=== PATIENT | female | born 1985 | race African-American/Black ===

== ENCOUNTER 2017-08-22 21:11 | Emergency (ER) | payer MEDICAID ==
[~2017-08-22] VITALS: Ht 165.1 cm; Wt 73.9 kg
[~2017-08-22 21:11] MED LIST: ALBUTEROL SULF8.5 GM INH; BENADRYL25 MG PO; CIPRO500 MG PO; ELIMITE 5% CREA60 GM TOPIC; KEPPRA500 MG PO; ZOFRAN ODT4 MG ORAL
[2017-08-22 21:30] VITALS: BP 126/76
[2017-08-22] MEDS ORDERED: Norco 5mg/325mg tab ORAL ONE (21:30)
[2017-08-22 21:47] LABS: APPEARANCE,URINE SLIGHTLY CLOUDY; BILIRUBIN, URINE NEGATIVE (NEGATIVE); GLUCOSE, URINE (UA) NEGATIVE (NEGATIVE); KETONES,URINE 1+ (NEGATIVE); LEUKOCYTE ESTERASE ,URINE 3+ (NEGATIVE); NITRITE,URINE NEGATIVE (NEGATIVE); PH,URINE 7 (4.5-8.0); PROTEIN,URINE NEGATIVE (NEGATIVE); UROBILINOGEN,URINE 4 MG/DL (0.0-1.0)
[2017-08-22 21:48] LABS: COLOR,URINE YELLOW
[2017-08-22] MEDS ORDERED: Cephalexin 500mg cap ORAL ONE (22:30)
[2017-08-22] MEDS ORDERED: MACROBID100 MG ORAL (23:07)
[2017-08-22] MEDS ORDERED: HYDROCODON-ACE1 EA15 ORAL (23:07)
--- NOTE | 2017-08-22 23:08 | Emergency Room Report ---
History of Present Illness General Chief Complaint: Abdominal Pain Source: Patient, EMS Present Illness HPI Is a 32-year-old female who is 4 approximately 6-7 weeks . She presents with acute onset of pain and vaginal spotting. Same symptom occurred 2 weeks ago when she went to another hospital and had ultrasound does show she was 5 weeks . No fever or chills. No nausea no vomiting. No dysuria frequency. Pain started on the middle and radiate to her back and down her leg. Pain is 10 out of 10. No trauma. Allergies: Coded Allergies: No Known Allergies (Verified , 10/08/08) Patient History Past Medical History: see triage record, old chart reviewed Past Surgical History: none Pertinent Family History: none Social History: Denies: smoking Last Menstrual Period: 6 weeks Now: Yes : 4 Para: 1 Immunizations: other Reviewed Nursing Documentation: PMH: Agreed, PSxH: Agreed Nursing Documentation-PMH Hx Cardiac Problems: Yes - anemia Hx Asthma: Yes Hx Cancer: No Hx Gastrointestinal Problems: Yes Hx Neurological Problems: Yes Hx Seizures: Yes Hx Epilepsy: Yes Hx Tremors: Yes Hx Vertigo: Yes Hx Dizziness: Yes Hx Syncope: Yes Hx Headaches: Yes Hx Weakness: Yes Hx Fatigue: Yes Review of Systems Eye: Denies: eye pain, blurred vision ENT: Denies: ear pain, nose congestion, throat swelling Respiratory: Denies: cough, shortness of breath Cardiovascular: Denies: chest pain, palpitations Gastrointestinal: Reports: abdominal pain, Denies: diarrhea, nausea, vomiting Musculoskeletal: Denies: back pain, joint pain Skin: Denies: rash Neurological: Denies: headache, numbness Endocrine: Denies: increased thirst, increased urine Hematologic/Lymphatic: Denies: easy bruising All Other Systems: negative except mentioned in HPI Physical Exam Vital Signs Date Time Temp Pulse Resp B/P (MAP) Pulse Ox O2 Delivery O2 Flow Rate FiO2 08/22/17 21:07 98.2 64 18 122/79 99 Room Air 98.2 vitals normal Sp02 EP Interpretation: reviewed, normal General Appearance: well appearing, no apparent distress, alert Head: normocephalic, atraumatic Eyes: bilateral eye PERRL, bilateral eye EOMI ENT: hearing grossly normal, normal pharynx Neck: full range of motion, supple, no meningismus Respiratory: chest non-tender, lungs clear, normal breath sounds Cardiovascular #1: regular rate, rhythm, no murmur Gastrointestinal: normal bowel sounds, non tender, no mass, no organomegaly, no bruit, non-distended Musculoskeletal: back normal, gait/station normal, normal range of motion Psychiatric: mood/affect normal Skin: warm/dry Medical Decision Making Diagnostic Impression: Primary Impression: Threatened in first trimester Additional Impression: UTI (urinary tract infection) Qualified Codes: N30.00 - Acute cystitis without hematuria ER Course Patient with abdominal pain and a threatened miscarriage. Ultrasound showed 7 weeks IUP with good heart. She does have a fibroid and some small amount of free fluid in the pelvic area. She may have had a ruptured ovarian cyst. No evidence of acute abdomen. No evidence of ectopic. CT/MRI/US Diagnostic Results CT/MRI/US Diagnostic Results : Imaging Test Ordered: Pelvic US Impression Read by satellite dish technician. IUP at 7 weeks and 2 days. fibroid. small free fluid. Last Vital Signs Date Time Temp Pulse Resp B/P (MAP) Pulse Ox O2 Delivery O2 Flow Rate FiO2 08/22/17 22:28 98.1 08/22/17 21:30 78 18 126/76 98 Room Air Disposition: HOME, SELF-CARE Condition: Stable Scripts Nitrofurantoin Monohyd/M-Cryst (Nitrofurantoin [place]-Mcr 100 mg) 100 Mg Capsule 100 MG ORAL Q12H, #14 CAP Prov: MICHEAL GUERRERO M.D. 08/22/17 Hydrocodone/Acetaminophen 5-325* (HYDROCODONE/ACETAMINOPHEN 5-325*) 1 Each Tablet 1 TAB ORAL Q6H Y for For Pain, #10 TAB 0 Refills Prov: MICHEAL GUERRERO M.D. 08/22/17 Referrals: [facility],REFERRING (PCP) Additional Instructions: Followup with your [employer] in 7 days. Return if worse. MICHEAL GUERRERO M.D. Aug 22, 2017 23:08
[2017-08-22 23:19] VITALS: BP_SYST 126; BP_SYST 136; BP_DIAS 76
--- NOTE | 2017-08-25 15:49 | Diagnostic Imaging Report ---
Indication: Slight vaginal bleeding and pain, 7 weeks Technique: Transabdominal and transvaginal images Comparison: none Findings: Exam is somewhat limited; patient did not have a full bladder and therefore optimal transabdominal images could not be obtained. The uterus measures 10.8 cm length by 6.6 cm AP. Within the endometrium, there is a gestational sac. This demonstrates a yolk sac as well as a pole. pole demonstrates a crown-rump length of 12 mm, corresponding to an estimated gestational age of 7 weeks 3 days. There is positive heart activity, heart rate 171 bpm. No subchorionic hemorrhage demonstrated. Possible small there is a 3.4 cm fundal fibroid in the lower uterine segment. The left ovary measures 2.9 cm in length, demonstrates a probable small hemorrhagic corpus luteum. The right ovary measures 3 cm in length. No adnexal mass demonstrated. There is trace free cul-de-sac fluid Impression: 7 weeks 3 day, by crown-rump length measurement, single live intrauterine . No unusual features 3.4 cm fibroid Probable small hemorrhagic corpus luteum in the left ovary Trace free cul-de-sac fluid
== END 2017-08-22 23:19 | disposition home or self-care (01) ==
LOC: EDBD 21:11 → EMR 21:45
DX: O20.0 Threatened abortion (principal); Z3A.01 Less than 8 weeks gestation of pregnancy; O23.41 Unspecified infection of urinary tract in pregnancy, first trimester; J45.909 Unspecified asthma, uncomplicated; G40.909 Epilepsy, unspecified, not intractable, without status epilepticus
CPT/HCPCS: 76801; 76830; 76857; 80307; 81003; 99284